=== PATIENT | female | born 1975 | race African-American/Black ===

== ENCOUNTER 2022-12-11 09:15 | Inpatient (IN) | payer MEDICAID ==
[~2022-12-11] VITALS: Ht 172.7 cm; Wt 79.4 kg
[2022-12-11 02:00] VITALS: BP 96/64
[~2022-12-11 09:15] MED LIST: ASPI-785; CLOP-31; FURO-152; HYDR500C18; NITR2.5C12; WARF1TAB46; ZIPR40CA2; [UNRECOGNIZED DRUG - OTHER]
[2022-12-11] MEDS ORDERED: METHYLPREDNISOLONE SOD SUCC 125 MG/2 ML VIAL IV STA (09:25)
[2022-12-11] MEDS ORDERED: IPRATROPIUM BROMIDE (0.02%) 0.5MG/2.5ML NEB HHN STA (09:25)
[2022-12-11] MEDS ORDERED: MAGNESIUM 2 G PREMIX 50 ML IV STA (09:25)
[2022-12-11] MEDS ORDERED: ALBUTEROL (0.083%) 2.5MG/3ML NEB HHN STA (09:25)
[2022-12-11] MEDS ORDERED: METOCLOPRAMIDE HCL 10MG/2ML VIAL IV ONE (11:15)
[2022-12-11] MEDS ORDERED: KETOROLAC 30MG/ML VIAL IV ONE (11:15)
[2022-12-11] MEDS ORDERED: SODIUM CHLORIDE 0.9% 1,000 ML IV ONE (11:15)
[2022-12-11 12:02] LABS: HEMATOCRIT. 35.5 % (36.0-48.0); HEMOGLOBIN. 11.9 g/dL (12.0-16.0); MEAN CORPUSCULAR HEMOGLOBIN 29.8 pg (28.0-32.0); MEAN CORPUSCULAR VOLUME 88.6 fL (81.0-99.0); PLATELET 261 x1000/uL (130-400); RED BLOOD CELL COUNT 4.01 mill/uL (4.2-5.4); RED CELL DISTRIBUTION WIDTH 13.6 % (11.6-14.6)
[2022-12-11 12:05] LABS: CHLORIDE 107 mEq/L (98-107)
[2022-12-11] MEDS ORDERED: POTASSIUM CHLORIDE 20MEQ TABLET SR PO ONE (12:30)
[2022-12-11 12:36] LABS: PLATELET ESTIMATE NORMAL
[2022-12-11] MEDS ORDERED: ONDANSETRON HCL 4MG/2ML INJ IV PRN (15:15)
[2022-12-11] MEDS ORDERED: ACETAMINOPHEN 325MG TABLET PO PRN (15:15)
[2022-12-11 16:00] VITALS: BP 91/59
[2022-12-11] MEDS: METHYLPREDNISOLONE SOD SUCC 40 MG/ML VIAL IV SCH (18:11)
[2022-12-11 20:00] VITALS: BP 98/59
[2022-12-11 21:59] LABS: CHLORIDE 111 mEq/L (98-107)
[2022-12-12] VITALS: BP 95/51
[2022-12-12] MEDS: METHYLPREDNISOLONE SOD SUCC 40 MG/ML VIAL IV SCH ×2 (00:28→09:05)
[2022-12-12] MEDS: IPRATROPIUM BROMIDE (0.02%) 0.5MG/2.5ML NEB HHN SCH ×4 (01:47→11:26)
[2022-12-12 03:28] LABS: *AMPHETAMINES SCREEN URINE NEGATIVE (NEGATIVE); *BARBITURATES SCREEN URINE NEGATIVE (NEGATIVE); *BENZODIAZEPINES SCREEN URINE NEGATIVE (NEGATIVE); *COCAINE SCREEN URINE NEGATIVE (NEGATIVE); METHADONE URINE SCREEN NEGATIVE (NEGATIVE); OPIATES URINE SCREEN NEGATIVE (NEGATIVE); PHENCYCLIDINE URINE SCREEN NEGATIVE (NEGATIVE)
[2022-12-12 04:00] VITALS: BP 134/89
[2022-12-12 04:13] LABS: CANNABINOID URINE SCREEN PRESUMTIVE POSITIVE (NEGATIVE)
[2022-12-12 08:00] VITALS: BP 115/85
[2022-12-12] MEDS ORDERED: FLUT1DIS3 INH (11:31)
[2022-12-12] MEDS ORDERED: P20 MT (11:31)
[2022-12-12 12:00] VITALS: BP 112/73
[2022-12-12 12:08] VITALS: BP 126/72
== END 2022-12-12 12:50 | disposition home or self-care (01) | DRG 141 ==
LOC: ER 09:15 → 6EST 12:56 → EDBEDREQTM 12:58 → EDBEDREQ 12:58 → CANRESERV 13:12 → ENRESERV 13:12
PROVIDERS: ADMIT Internal Medicine; ATTEND Internal Medicine
DX: J45.901 Unspecified asthma with (acute) exacerbation (principal); E44.0 Moderate protein-calorie malnutrition; Z86.74 Personal history of sudden cardiac arrest; E87.6 Hypokalemia; J44.9 Chronic obstructive pulmonary disease, unspecified; Z88.0 Allergy status to penicillin; Z68.26 Body mass index [BMI] 26.0-26.9, adult
CPT/HCPCS: 36415; 71045; 80048; 80053; 80305; 85025; 94640; 99285; J1885; J2765; J2920; J2930; J3475; J7030